=== PATIENT | female | born 1945 | race Hispanic/Latino ===

== ENCOUNTER → 2017-04-01 | Day surgery (SDC) | payer MEDICARE, BC ==
[2017-03-28 15:23] LABS: BASOPHILS % 0.5 % (0.0-1.0); EOSINOPHILS # (AUTO) 0.2 (0.0-0.4); EOSINOPHILS % 2.4 % (0.0-6.0); HEMATOCRIT 41.8 % (34.2-44.1); HEMOGLOBIN 13.1 g/dL (12.0-16.0); LYMPHOCYTES # (AUTO) 2.7 (1.0-3.2); LYMPHOCYTES % 36.5 % (18.0-39.1); MEAN CORPUSCULAR HEMOGLOBIN 28.6 pg (28-32); MEAN CORPUSCULAR HGB CONC 31.3 g/dL (31-35); MEAN CORPUSCULAR VOLUME 91.3 fL (81-99); MONOCYTES # (AUTO) 0.5 (0.2-0.8); MONOCYTES % 6.4 % (4.4-11.3); NEUTROPHILS % 53.9 % (38.7-80.0); PLATELET COUNT 227 x10e3/uL (140-360); RED BLOOD COUNT 4.58 x10e6/uL (3.6-5.1); RED CELL DISTRIBUTION WIDTH 15.4 % (11.7-14.4)
--- NOTE | 2017-03-28 15:47 | Diagnostic Imaging Report ---
PROCEDURE: Frontal and lateral views of the chest. COMPARISON: None. INDICATIONS: PREOPERATIVE FOR FOOT SURGERY FINDINGS: Lines/tubes: None. Lungs: The lungs are well inflated and clear. There is no evidence of pneumonia or pulmonary edema. Pleura: There is no pleural effusion or pneumothorax. Heart and mediastinum: The heart and the mediastinum are normal. Atherosclerotic calcification of the thoracic aorta. Bones: No acute bony abnormality. Degenerative changes in the thoracic spine. IMPRESSION: 1. No acute cardiopulmonary abnormalities Winston Castaneda M.D. Dictated by: Winston Castaneda M.D. on 03/28/2017 at 15:56 Electronically approved by: Winston Castaneda M.D. on 03/28/2017 at 15:56
[~2017-04-01] MED LIST: ASPIR 8181 MG PO; BUPIVACAINE HCL 0.5% INJ 30 ML VIAL INJ ONE; CEFAZOLIN SOD 2 GM/D5W 50ML 50 ML IV ONE; DEXAMETHASONE SOD PHOS INJ 4 MG/ML VIAL ONE; FENTANYL CITRATE/PF 100MCG/2 ML INJ ONE; LIDOCAINE HCL 2% LOCAL INJ 5 ML SDV VIAL INJ ONE; LORCET 10-6501 EAC1 PO; MIDAZOLAM HCL 2 MG/2 ML VIAL ONE; NEOSTIGMINE 1 MG/ML 10ML VIAL ONE; ONDANSETRON HCL INJ 2 MG/ML VIAL ONE; OTC REFLUX MED; PROPOFOL IV EMULSION 10 MG/ML 20 ML VIAL ONE; SEVOFLURANE INHAL SOLN 250 ML PEN BTL ONE; TYLENOL EXTRA500 MG PO; Z.0.NEXIUM40 MG PO; Z.0.SOMA350 MG PO
--- OUTSIDE RECORDS SUMMARY | 2017-04-01 10:23 | XMS REPORT ---
[facility] Address Unknown Phone Unavailable Care Team Providers Care Automatic Punch Press Operator Name Role Phone SHAN MOHR Unavailable Unavailable Problems This patient has no known problems. Allergies, Adverse Reactions, Alerts This patient has no known allergies or adverse reactions. Medications This patient has no known medications. Results Test Description Test Time Test Comments Text Results Atomic Results Result Comments CHEST 2 VIEWS [place] [address] Patient Name: CARLITOS MONTESINOS MR #: [id number] : 1945 Age/Sex: 71/F Req #: [id number] Adm Physician: Ordered by: SHAN MOHR DPM Report # : [id number] Location: OR Room/Bed: Procedure: [id number] DX/CHEST 2 VIEWS Exam Date: 03/28/17 Exam Time : 1510 REPORT STATUS: Signed PROCEDURE: Frontal and lateral views of the chest. COMPARISON: None. INDICATIONS: PREOPERATIVE FOR FOOT SURGERY FINDINGS: Lines/tubes: None. Lungs: The lungs are well inflated and clear. There is no evidence of pneumonia or pulmonary edema. Pleura: There is no pleural effusion or pneumothorax. Heart and mediastinum: The heart and the mediastinum are normal. Atherosclerotic calcification of the thoracic aorta. Bones: No acute bony abnormality. Degenerative changes in the thoracic spine. IMPRESSION: 1. No acute cardiopulmonary abnormalities Cynthia Castaneda M.D. Dictated by: Cynthia Castaneda M.D. on 03/28/2017 at 15:56 Electronically approved by: Cynthia Castaneda M.D. on 03/28/2017 at 15:56 Dictated By: CYNTHIA CASTANEDA MD [id number] Transcribed By: ERIKA on 03/28/17 [id number] COPY TO: SHAN MOHR DPM
--- NOTE | 2017-04-01 14:16 | Operative Report ---
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 The second is calcaneal cuboid. 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 The second is calcaneal cuboid. PROCEDURE: Excision of tarsal coalition, calcaneal cuboid and talonavicular. SUPPORT DIRECTOR: None. PATHOLOGY: None. ANESTHESIA: A general anesthetic. HEMOSTASIS: A pneumatic thigh tourniquet at 350 mmHg. ESTIMATED BLOOD LOSS: Less than 10 mL. MATERIALS: Human allograft. COMPLICATIONS: None. CONDITION: Stable. PROCEDURE IN DETAIL: Under mild sedation, the patient was brought to the operating room and placed on the operating table in the supine position. Following IV sedation, anesthesia was obtained with a general anesthetic. At this point, the left foot was scrubbed, prepped and draped in the usual aseptic manner. It was then lowered to the table after the tourniquet was inflated to 350 mmHg. Attention was then directed to the dorsal aspect of the talonavicular joint where a linear incision was made overlying the joint. The incision was deepened via sharp and blunt dissection, taking care to retract or cauterize neurovascular structures as necessary down to the level of the joint. At this point, an osteotome was used to remove the coalition. The area was then made smooth. Adipose tissue was then used in order to separate the coalition. Attention was then directed to the calcaneal cuboid joint where at the most dorsal aspect the coalition was noted. Utilizing oscillating sharp dissection and osteotomes, the coalition was also resected. Adipose was inserted into the area. The area was then flushed with copious amount of normal sterile saline solution. At this point, human allograft was then used to prevent adhesions and to promote healing. The incision was then closed, closing the deepest layer with 4-0 Vicryl and 4-0 nylon. A clean dressing was applied consisting of Adaptic ointment, 4 x 4's, Kerlix and an Migue bandage. The tourniquet was deflated. There was noted to be a hyperemic response to all the digits. Patient tolerated the procedure and anesthesia well without complications, was transported to the recovery room with vital signs stable and neurovascular status intact to both feet. Patient will be discharged home once she meets criteria. She was given instructions to be nonweightbearing, to ice and elevate the foot while at rest, to follow up with me in the office and to call the office if any questions, concerns or any problems arise. Job#: [id number] EV
== END | disposition home or self-care (01) ==
LOC: OR 10:20
PROVIDERS: ATTEND Podiatrist Foot & Ankle Surgery
DX: Q66.89 Other specified congenital deformities of feet (principal); M06.9 Rheumatoid arthritis, unspecified; K21.9 Gastro-esophageal reflux disease without esophagitis; I34.1 Nonrheumatic mitral (valve) prolapse; Z01.810 Encounter for preprocedural cardiovascular examination; Z01.812 Encounter for preprocedural laboratory examination; Z79.82 Long term (current) use of aspirin
CPT/HCPCS: 28116; 36415; 71046; 76000; 85025; 93005; J1100; J2001; J2250; J2405; J2710

== ENCOUNTER 2017-08-30 20:32 | Emergency (ER) | payer MEDICARE, BC ==
[~2017-08-30] VITALS: Ht 152.4 cm; Wt 77.1 kg
[~2017-08-30 20:32] MED LIST changes: -BUPIVACAINE HCL 0.5% INJ 30 ML VIAL INJ ONE; -CEFAZOLIN SOD 2 GM/D5W 50ML 50 ML IV ONE; -DEXAMETHASONE SOD PHOS INJ 4 MG/ML VIAL ONE; -FENTANYL CITRATE/PF 100MCG/2 ML INJ ONE; -LIDOCAINE HCL 2% LOCAL INJ 5 ML SDV VIAL INJ ONE; -MIDAZOLAM HCL 2 MG/2 ML VIAL ONE; -NEOSTIGMINE 1 MG/ML 10ML VIAL ONE; -ONDANSETRON HCL INJ 2 MG/ML VIAL ONE; -PROPOFOL IV EMULSION 10 MG/ML 20 ML VIAL ONE; -SEVOFLURANE INHAL SOLN 250 ML PEN BTL ONE
[2017-08-30] MEDS ORDERED: PENICILLIN G BENZATHINE LA 1.2 MU TBX IM STA (20:44)
[2017-08-30] MEDS ORDERED: HYDROCODONE/APAP 5MG-325MG TAB PO ONE (20:45)
[2017-08-30] MEDS ORDERED: IBUPROFEN 400 MG TAB PO ONE (21:00)
== END 2017-08-30 21:31 | disposition home or self-care (01) ==
LOC: ER 20:32
DX: R50.9 Fever, unspecified (principal); K08.89 Other specified disorders of teeth and supporting structures; K04.7 Periapical abscess without sinus
CPT/HCPCS: 99282; J0561

== ENCOUNTER → 2018-03-10 | Day surgery (SDC) | payer MEDICARE, BC ==
[~2018-03-10] MED LIST changes: +FENTANYL CITRATE/PF 100MCG/2 ML INJ ONE; +MIDAZOLAM HCL 2 MG/2 ML VIAL ONE; +OR PHACO EYE KIT ONE; +PREOP PHACO EYE KIT ONE
[2018-03-10 12:50] VITALS: BP 145/72
== END | disposition home or self-care (01) ==
LOC: OR 09:42
PROVIDERS: ATTEND Ophthalmology
DX: H25.11 Age-related nuclear cataract, right eye (principal); K21.9 Gastro-esophageal reflux disease without esophagitis; E78.5 Hyperlipidemia, unspecified; M79.7 Fibromyalgia; M13.0 Polyarthritis, unspecified
CPT/HCPCS: J2250; V2632

== ENCOUNTER → 2018-07-07 | Day surgery (SDC) | payer MEDICARE, BC ==
[2018-07-01 16:02] LABS: BASOPHILS % 0.2 % (0.0-1.0); EOSINOPHILS # (AUTO) 0.1 (0.0-0.4); EOSINOPHILS % 1.3 % (0.0-6.0); HEMATOCRIT 40.4 % (34.2-44.1); HEMOGLOBIN 12.9 g/dL (12.0-16.0); LYMPHOCYTES # (AUTO) 2.6 (1.0-3.2); LYMPHOCYTES % 30.1 % (18.0-39.1); MEAN CORPUSCULAR HEMOGLOBIN 28.8 pg (28-32); MEAN CORPUSCULAR HGB CONC 31.9 g/dL (31-35); MEAN CORPUSCULAR VOLUME 90.2 fL (81-99); MONOCYTES # (AUTO) 0.5 (0.2-0.8); MONOCYTES % 5.5 % (4.4-11.3); NEUTROPHILS # (AUTO) 5.5 (2.1-6.9); NEUTROPHILS % 62.6 % (38.7-80.0); PLATELET COUNT 251 x10e3/uL (140-360); RED BLOOD COUNT 4.48 x10e6/uL (3.6-5.1); RED CELL DISTRIBUTION WIDTH 15.7 % (11.7-14.4)
--- NOTE | 2018-07-01 16:27 | Diagnostic Imaging Report ---
EXAMINATION: CHEST 2 VIEWS INDICATION: Pre-op. COMPARISON: None FINDINGS: TUBES and LINES: None. LUNGS: Lungs are moderately inflated. There is no evidence of pneumonia or pulmonary edema. PLEURA: No pleural effusion or pneumothorax. HEART AND MEDIASTINUM: The cardiomediastinal silhouette is unremarkable. There are atherosclerotic calcifications within the aorta. BONES AND SOFT TISSUES: No acute osseous abnormality. UPPER ABDOMEN: No free air under the diaphragm. IMPRESSION: No acute radiographic abnormality. Signed by: Dr. Leanna Damian MD on 07/01/2018 4:24 PM
[~2018-07-07] MED LIST changes: +ACETAMINOPHEN 1000 MG/100 ML 100 ML IV ONE; +ACETAMINOPHEN 1000 MG/100 ML IV ONE; +BUPIVACAINE HCL 0.5% INJ 30 ML VIAL INJ ONE; +CEFAZOLIN SOD 2 GM/D5W 50ML 50 ML IV ONE; +DEXAMETHASONE SOD PHOS INJ 4 MG/ML VIAL ONE; +LIDOCAINE HCL 2% LOCAL INJ 5 ML SDV VIAL INJ ONE; -MIDAZOLAM HCL 2 MG/2 ML VIAL ONE; +NEOSTIGMINE 1 MG/ML 10ML VIAL ONE; +NEXIUM OTC PO; +ONDANSETRON HCL INJ 2MG/ML 2ML 2 MG/ML VIAL ONE; -OR PHACO EYE KIT ONE; -PREOP PHACO EYE KIT ONE; +PROPOFOL IV EMULSION 10 MG/ML 20 ML VIAL ONE; +SEVOFLURANE INHAL SOLN 250 ML PEN BTL ONE; +TYLENOL ARTHRITIS PO
--- OUTSIDE RECORDS SUMMARY | 2018-07-07 05:43 | XMS REPORT | Clinical Summary ---
Author Author [facility] Address Unknown Phone Unavailable Care Team Providers Care Bearing Grinder Name Role Phone Asked, No Pcp PCP Unavailable Allergies No Known Allergies Medications End Date Status Medication Sig Dispensed Refills Start Date 11/29/2018 Active amoxicillin-pot TAKE 4 20 tablet 1 clavulanate (AUGMENTIN) TABLETS BY 9 500-125 mg per MOUTH 1-2 tabletIndications: HOURS PRIOR Prophylactic antibiotic, TO History of knee INVASIVE/DENT replacement, unspecified AL PROCEDURE laterality OR 4 TABLETS ONCE FOR SIGNIFICANT CUT, ANIMAL, OR INSECT BITE 07/01/2019 Active amoxicillin-pot Dental/Surgic 28 tablet 1 clavulanate (AUGMENTIN) al: 4 tablets 9 500-125 mg per tablet at once 1-2 hrs prior to procedure/jey aning Other: 4 tablets immediately 08/06/2018 Active VOLTAREN 1 % gel Apply 1- 2 100 g 2 grams to 9 affected area BID. 01/09/2018 Discontinued amoxicillin-pot Take 4 tabs 16 tablet 1 clavulanate (AUGMENTIN) PO 1- 2 hours 8 500-125 mg per prior to tabletIndications: invasive/dent Prophylactic antibiotic, al procedure. History of knee Or 4 tabs replacement, unspecified once for laterality significant cut, animal or insect bite. 06/01/2018 Discontinued amoxicillin-pot TAKE 4 12 tablet 0 clavulanate (AUGMENTIN) TABLETS BY 8 500-125 mg per MOUTH 1-2 tabletIndications: HOURS PRIOR Prophylactic antibiotic, TO History of knee INVASIVE/DENT replacement, unspecified AL PROCEDURE laterality OR 4 TABLETS ONCE FOR SIGNIFICANT CUT, ANIMAL, OR INSECT BITE 07/06/2018 Discontinued diclofenac (VOLTAREN) 1 % Apply 500 g 0 gelIndications: Chronic topically 2 9 pain of right knee, (two) times a Synovitis of right knee day. Apply 1-2 grams to affected area 2 times daily. Active Problems No known active problems Encounters Care Team Description Date Type Specialty Juliette Bansal RN 07/06/2018 Refill Orthopedic Surgery Clayton Erwin MD History of total right knee replacement (Primary Dx); Chronic pain of right knee; Synovitis of right knee; Prophylactic antibiotic 06/30/2018 Office Visit Orthopedic Surgery Juliette Bansal RN Prophylactic antibiotic; History of knee replacement, unspecified laterality 06/01/2018 Refill Orthopedic Surgery Clayton Erwin MD Prophylactic antibiotic; History of knee replacement, unspecified laterality 01/09/2018 Refill Orthopedic Surgery after 07/06/2017 Family History Medical History Relation Name Comments Diabetes Mother Zenobia Byrne Relation Name Status Comments Mother Zenobia Byrne Social History Date Tobacco Use Types Packs/Day Years Used Never Smoker Alcohol Use Drinks/Week oz/Week Comments No Sex Assigned at Date Recorded Female 06/30/2018 2:58 PM CDT Industry Job Start Date Occupation Not on file Not on file Not on file Travel End Travel History Travel Start No recent travel history available. Last Filed Vital Signs Time Taken Vital Sign Reading - Blood Pressure - - Pulse - - Temperature - - Respiratory Rate - - Oxygen Saturation - - Inhaled Oxygen - Concentration 06/30/2018 3:37 PM CDT Weight 77.6 kg (171 lb) 06/30/2018 3:37 PM CDT Height 149.9 cm (4' 11") 06/30/2018 3:37 PM CDT Body Mass Index 34.54 Plan of Treatment Care Team Description Date Type Specialty Td Zimmerman MD [address] [place] [id number] [phone] 08/03/2018 Office Visit Orthopedic Surgery Health Maintenance Due Date Last Done Comments BREAST CANCER SCREENING 09/04/1995 COLON CANCER SCREENING 09/04/1995 SHINGLES VACCINES (#1) 09/04/1995 65+ PNEUMOCOCCAL VACCINE 2010 (1 of 2 - PCV13) PNEUMOCOCCAL 2010 POLYSACCHARIDE VACCINE AGE 65 AND OVER INFLUENZA VACCINE 09/24/2018 Results Not on fileafter 07/06/2017 Insurance Payer Benefit Subscriber ID Type Phone Address Plan / Group MEDICARE MEDICARE xxxxxxxxxxx Medicare [place], [place] PART A AND B BCBS BCBS xxxxxxxxxxxx Indemnity PAR/TRAD PLAN Advance Directives Patient has advance care planning documents on file. For more information, tess e contact: Bobo Schilling [address] [place] [address]
--- NOTE | 2018-07-07 07:05 | NUR ---
SPIRITUAL CARE - Pre-Surgery Assessment: Pt in bed. Pt's at bedside. Pt reported supportive attention from family and friends. Intervention: I provided pastoral presence, hospitality, and sympathetic listening. I acquainted pt with availability of insurance underwriter while hospitalized. Outcome: Pt expressed appreciation for visit. No need for follow up indicated at this time. LEÓN Salguerolain Spiritual Care Department O: [phone] Pager: [phone] ([phone] number calling from)
[2018-07-07 09:37] VITALS: BP 146/87
--- NOTE | 2018-07-07 15:13 | Operative Report ---
DATE OF PROCEDURE: 07/07/2018 SURGEON: Tanya Rivera DPM [employer]: None. PREOPERATIVE DIAGNOSIS: Hammertoe, right 2nd. POSTOPERATIVE DIAGNOSIS: Hammertoe, right 2nd. PROCEDURE: 1. Proximal interphalangeal joint fusion, right 2nd. 2. Flexor tenotomy at distal interphalangeal joint, right 2nd. 3. Tenotomy and capsulotomy at metatarsophalangeal joint, right foot. 4. Use of human allograft to prevent adhesions and to promote healing to the area. COMPLICATIONS: None. CONDITION: Stable. MATERIALS: Smart Toe implant from [employer]. ESTIMATED BLOOD LOSS: Less than 5 mL. PROCEDURE IN DETAIL: Under mild sedation, the patient was brought to the operating room and placed on the operating table in supine position. Following IV sedation, anesthesia was obtained with a general anesthetic. At this point, the right foot was scrubbed, prepped, and draped in the usual aseptic manner. Then, the leg was lowered to the table. Attention was then directed to the PIP joint where no fusion had been performed. There was malalignment. The incision was deepened via sharp and blunt dissection down to the level of the joint. The joint was then visualized. Utilizing oscillating saw, it was then resected till fusion was taken down. The osteotomy was made down to clean viable tissue. Utilizing [employer] Smart Toe, it was then inserted in an adequate alignment clinically and with the use of intraoperative fluoroscopy. Attention was directed to the flexor tendon, where a flexor tenotomy was then performed to release a contracture at the DIPJ. At this point, the toe was still noted to float dorsally. An MPJ tenotomy and capsulotomy was also performed to decrease the contracture at this joint. After the tenotomy and capsulotomy at the MPJ, the toe was now in an anatomical alignment. This was noted clinically and with the use of intraoperative fluoroscopy. All areas were flushed with copious amount of normal sterile saline solution. Human allograft was then inserted into the area in order to prevent adhesions and to promote healing of the area. The area was then closed with 4-0 nylon at all incisions. Clean dressing was applied consisting of Adaptic, Coban, 4x4s, Kerlix, and an Migue bandage. The tourniquet was deflated. There was noted to be hyperemic response to all the digits. The patient tolerated procedure and anesthesia well without complications, was transferred to recovery room with vital signs that were stable and vascular status intact. The patient will be discharged home when she meets criteria. She was given instructions to be weightbearing with the use of a fracture boot and assistance with a walker or crutches. She will keep the dressing clean, dry, and intact and she will call the office if any questions, concerns, or any problems arise. JANES Blanc/ONEAL /[id number]
== END | disposition home or self-care (01) ==
LOC: OR 05:40
PROVIDERS: ATTEND Podiatrist Foot & Ankle Surgery
DX: M20.41 Other hammer toe(s) (acquired), right foot (principal); M06.9 Rheumatoid arthritis, unspecified; K21.9 Gastro-esophageal reflux disease without esophagitis; Z01.810 Encounter for preprocedural cardiovascular examination; Z01.812 Encounter for preprocedural laboratory examination; Z01.818 Encounter for other preprocedural examination
CPT/HCPCS: 28270; 28285; 36415; 71046; 85025; 93005; J0131; J0690; J1100; J2001; J2405; J2704; J2710; 76000

== ENCOUNTER → 2021-12-25 | Day surgery (SDC) | payer MEDICARE, BC ==
[2021-12-21 12:31] LABS: BASOPHILS % 0.2 % (0.0-1.0); EOSINOPHILS # (AUTO) 0.1 (0.0-0.4); EOSINOPHILS % 1.2 % (0.0-6.0); HEMATOCRIT 41.8 % (34.2-44.1); HEMOGLOBIN 12.8 g/dL (12.0-16.0); LYMPHOCYTES # (AUTO) 2.5 (1.0-3.2); LYMPHOCYTES % 28.5 % (18.0-39.1); MEAN CORPUSCULAR HEMOGLOBIN 28.9 pg (28-32); MEAN CORPUSCULAR HGB CONC 30.6 g/dL (31-35); MEAN CORPUSCULAR VOLUME 94.4 fL (81-99); MONOCYTES # (AUTO) 0.5 (0.2-0.8); MONOCYTES % 5.6 % (4.4-11.3); NEUTROPHILS # (AUTO) 5.7 (2.1-6.9); NEUTROPHILS % 64.3 % (38.7-80.0); PLATELET COUNT 212 x10e3/uL (140-360); RED BLOOD COUNT 4.43 x10e6/uL (3.6-5.1); RED CELL DISTRIBUTION WIDTH 15.5 % (11.7-14.4)
[~2021-12-25] MED LIST changes: -ACETAMINOPHEN 1000 MG/100 ML 100 ML IV ONE; -ACETAMINOPHEN 1000 MG/100 ML IV ONE; +AMLODIPINE BESYL5 MG PO; +AUGMENTIN 500-1 EACH PO; -CEFAZOLIN SOD 2 GM/D5W 50ML 50 ML IV ONE; +DEXAMETHASONE SOD PHOS INJ 4 MG/ML SDV ONE; -DEXAMETHASONE SOD PHOS INJ 4 MG/ML VIAL ONE; +IBUPROFEN800 MG PO; +KETOROLAC TROMETHAMINE 30 MG/ML VIAL ONE; +POVIDONE IODINE 0.05% 0.05 % ML PO ONE; +TIZANIDINE HCL4 M1 PO
[2021-12-25 16:30] VITALS: BP 154/68
== END | disposition home or self-care (01) ==
LOC: OR 13:04
PROVIDERS: ATTEND Podiatrist Foot & Ankle Surgery
DX: M20.41 Other hammer toe(s) (acquired), right foot (principal); I10 Essential (primary) hypertension; E78.5 Hyperlipidemia, unspecified; K21.9 Gastro-esophageal reflux disease without esophagitis; F41.9 Anxiety disorder, unspecified; Z01.810 Encounter for preprocedural cardiovascular examination; Z01.812 Encounter for preprocedural laboratory examination; Z01.818 Encounter for other preprocedural examination; Z79.899 Other long term (current) drug therapy
CPT/HCPCS: 28285; 36415; 71046; 85025; 93005; J0690; J1100; J1885; J2001; J2405; J2704; J2710; J3010; 76000